=== PATIENT | female | born 1965 | race American Indian/Alaskan Native ===

== ENCOUNTER 2017-01-30 17:08 | Emergency (ER) | payer BC ==
[2017-01-30 17:09] VITALS: BMI 35.5
[2017-01-30 17:20] VITALS: BP 147/89; PULSE 109; RESP 16; TEMP 99.5; O2SAT 98
--- NOTE | 2017-01-30 17:50 | ED PDOC ---
Arrival/HPI - General Historian: Patient <MIKHAIL GARCIA - Last Filed: 01/30/17 18:09> <Hansel Bentley - Last Filed: 01/30/17 18:14> - General Chief Complaint: Back Pain Time Seen by Provider: 01/30/17 17:31 - History of Present Illness Narrative History of Present Illness (Text): 01/30/17 17:45 Patient is a 51 year old female with past medical history of hypertension and anxiety who presents to the emergency department for right sided neck, back, and arm pain for the past four days. She states that starting a week ago she began to feel stiffness and tightness in her mid back. She continued to deal with the stiffness until Sunday when the patient developed progressively worsening pain with numbness and tingling in her right arm. The patient credits the worsening pain due to sleeping wrong the night prior. She states the pain is worse with typing, writing, sitting and working on phone and relieved with light massage and extension of her right arm. She has taken Tylenol for the pain with minimal relief. She denies any shortness of breath, chest pain, fever , sweating, nausea or weakness. She denies any previous history of these symptoms in her past. (MIKHAIL GARCIA) Past Medical History - Provider Review Nursing Documentation Reviewed: Yes - Infectious Disease Hx of Infectious Diseases: None - Tetanus Immunization Tetanus Immunization: Unknown - Cardiac Hx Cardiac Disorders: Yes Hx Hypertension: Yes - Pulmonary Hx Respiratory Disorders: No - Neurological Hx Neurological Disorder: No - HEENT Hx HEENT Disorder: No - Renal Hx Renal Disorder: No - Endocrine/Metabolic Hx Endocrine Disorders: No - Hematological/Oncological Hx Blood Disorders: No - Integumentary Hx Dermatological Disorder: No - Musculoskeletal/Rheumatological Hx Musculoskeletal Disorders: No - Gastrointestinal Hx Gastrointestinal Disorders: No - Genitourinary/Gynecological Hx Genitourinary Disorders: No - Psychiatric Hx Psychophysiologic Disorder: Yes Hx Anxiety: Yes Hx Substance Use: No - Surgical History Hx Section: Yes (x 2) - Anesthesia Hx Anesthesia: Yes Hx Anesthesia Reactions: No Hx Malignant Hyperthermia: No - Suicidal Assessment Feels Threatened In Home Enviroment: No <MIKHAIL GARCIA - Last Filed: 01/30/17 18:09> - Provider Review Nursing Documentation Reviewed: Yes <Hansel Bentley - Last Filed: 01/30/17 18:14> Family/Social History - Physician Review Nursing Documentation Reviewed: Yes Family/Social History: No Known Family HX Smoking Status: Light Smoker < 10 Cigarettes Daily Hx Alcohol Use: Yes Hx Substance Use: No Hx Substance Use Treatment: No <MIKHAIL GARCIA - Last Filed: 01/30/17 18:09> - Physician Review Nursing Documentation Reviewed: Yes <ShereeHansel - Last Filed: 01/30/17 18:14> Allergies/Home Meds <MIKHAIL GARCIA - Last Filed: 01/30/17 18:09> <ShereeHanesl - Last Filed: 01/30/17 18:14> Allergies/Adverse Reactions: Allergies Penicillins Allergy (Verified 03/25/16 10:19) URTICARIA Home Medications: Home Meds Medication Instructions Recorded Confirmed Alprazolam [Xanax] 0.25 mg PO Q12 PRN 06/10/12 03/25/16 Review of Systems - Physician Review All systems were reviewed & negative as marked: Yes - Review of Systems Respiratory: absent: SOB, Cough Cardiovascular: absent: Chest Pain, Palpitations Musculoskeletal: Back Pain (right mid thoracic), Neck Pain (right sided) <MIKHAIL GARCIA - Last Filed: 01/30/17 18:09> - Physician Review All systems were reviewed & negative as marked: Yes - Review of Systems Neurological: Normal Endocrine: Normal Hemo/Lymphatic: Normal Psychiatric: Normal <Hansel Bentley - Last Filed: 01/30/17 18:14> Physical Exam Vital Signs Reviewed: Yes Temperature: Afebrile Blood Pressure: Normal Pulse: Tachycardic Respiratory Rate: Normal Appearance: Positive for: Well-Appearing Pain Distress: None Mental Status: Positive for: Alert and Oriented X 3 - Systems Exam Head: Present: Atraumatic, Normocephalic Pupils: Present: PERRL Extroacular Muscles: Present: EOMI Conjunctiva: Present: Normal Neck: Present: Normal Range of Motion. No: Meningeal Signs, MIDLINE TENDERNESS Respiratory/Chest: Present: Clear to Auscultation, Good Air Exchange. No: Respiratory Distress, Accessory Muscle Use Cardiovascular: Present: Regular Rate and Rhythm, Normal S1, S2. No: Murmurs Abdomen: Present: Normal Bowel Sounds. No: Tenderness, Distention, Peritoneal Signs Back: Present: Normal Inspection (trigger point right side paraspinal muscles T7 -T8), Paraspinal Tenderness (right sided ) Upper Extremity: Present: Normal ROM, NORMAL PULSES, Tenderness (right shoulder , arm, forearm), Neurovascularly Intact, Capillary Refill < 2s Lower Extremity: Present: Normal Inspection, NORMAL PULSES Neurological: Present: GCS=15, CN II-XII Intact, Speech Normal Skin: Present: Warm, Dry, Normal Color. No: Rashes Psychiatric: Present: Alert, Oriented x 3, Normal Insight, Normal Concentration <MIKHAIL GARCIA - Last Filed: 01/30/17 18:09> Vital Signs Reviewed: Yes <Hansel Bentley - Last Filed: 01/30/17 18:14> Vital Signs Temp Pulse Resp BP Pulse Ox 01/30/17 17:09 99.5 F 109 H 16 147/89 98 Medical Decision Making <MIKHAIL GARCIA - Last Filed: 01/30/17 18:09> <Hansel Bentley - Last Filed: 01/30/17 18:14> ED Course and Treatment: 01/30/17 17:59 Impression: Pt is a 51 year old female with past medical history of Hypertension and anxiety presents with right sided neck, shoulder, arm, forearm pain for the past four days. Differential Diagnosis included but are not limited to: - Cervical radiculopathy Plan: - Toradol IM injection - Flexeril prescription for at home - Reassess and disposition Progress Notes: (MIKHAIL GARCIA) 01/30/17 18:10 Seen and examined with the resident. Our history and physical exam reveals a woman who slept on her neck wrong last week. She developed right sided trapezius neck pain with radiation into her right upper extremity. No numbness tingling or paresthesias. No weakness. No direct blow. No chest pain palpitations or dyspnea. Her examination has some mild tenderness along the trapezius with spasm. She'll be treated and follow up with her PMD. Imaging as warranted if she does not improve. (Hansel Bentley) - Medication Orders Current Medication Orders: Discontinued Medications Ketorolac Tromethamine (Toradol) 30 mg IM STAT STA Stop: 01/30/17 17:59 - PA / PALLIATIVE CARE NURSE / Resident Statement MD/DO has reviewed & agrees with the documentation as recorded. / has examined the patient and agrees with the treatment plan. <MIKHAIL GARCIA - Last Filed: 01/30/17 18:09> - PA / PALLIATIVE CARE NURSE / Resident Statement FELECIA has reviewed & agrees with the documentation as recorded. MD/DO has examined the patient and agrees with the treatment plan. - Scribe Statement The provider has reviewed the documentation as recorded by the Scribe <Hansel Bentley - Last Filed: 01/30/17 18:14> - Scribe Statement 01/30/2017 Tania Claudia Provider Scribe Attestation: All medical record entries made by the Scribe were at my direction and personally dictated by me. I have reviewed the chart and agree that the record accurately reflects my personal performance of the history, physical exam, medical decision making, and the department course for this patient. I have also personally directed, reviewed, and agree with the discharge instructions and disposition. (Hansel Bentley) Disposition/Present on Arrival - Present on Arrival Any Indicators Present on Arrival: No History of DVT/PE: No History of Uncontrolled Diabetes: No Urinary Catheter: No History of Decub. Ulcer: No History Surgical Site Infection Following: None - Disposition Have Diagnosis and Disposition been Completed?: Yes Disposition Time: 18:10 <MIKHAIL GARCIA - Last Filed: 01/30/17 18:09> <Hansel Bentley - Last Filed: 01/30/17 18:14> - Disposition Diagnosis: Cervical radiculopathy Disposition: HOME/ ROUTINE Patient Problems: Current Active Problems Problem Status Onset Cervical radiculopathy Acute Condition: GOOD Additional Instructions: Mrs. Park, thank you for letting us take care of you today. Your provider was Dr. Garcia and Dr. Bentley. You were treated for cervical radiculopathy. The emergency medical care you received today was directed at your acute symptoms. If you were prescribed any medication, please fill it and take as directed. It may take several days for your symptoms to resolve. Return to the Emergency Department if your symptoms worsen, do not improve, or if you have any other problems. Please contact your doctor or call one of the physicians/clinics you have been referred to that are listed on the Patient Visit Information form that is included in your discharge packet. Bring any paperwork you were given at discharge with you along with any medications you are taking to your follow up visit. Our treatment cannot replace ongoing medical care by a primary care provider (PCP) outside of the emergency department. Thank you for allowing the [facility] team to be part of your care today. Follow up with your primary care physician. Prescriptions: Cyclobenzaprine [Flexeril] 5 mg PO TID #15 tab Naproxen [Naprosyn] 500 mg PO BID #14 tablet Referrals: José Miguel Bates MD [Primary Care Provider] - Follow up with primary
== END 2017-01-30 18:40 | disposition home or self-care (01) ==
LOC: ED 17:08
DX: M54.12 Radiculopathy, cervical region (principal); I10 Essential (primary) hypertension; Z72.0 Tobacco use
CPT/HCPCS: 96372; 99283; J1885

== ENCOUNTER 2018-12-15 13:58 | Emergency (ER) | payer BC ==
[2018-12-15 14:06] VITALS: BMI 30.2
[2018-12-15 14:11] VITALS: BP 140/91
[2018-12-15] MEDS ORDERED: Sodium Chloride 0.9% 1,000 ML IV SCH (14:45)
--- NOTE | 2018-12-15 14:50 | ED PDOC ---
Arrival/HPI - General Chief Complaint: Shortness Of Breath Time Seen by Provider: 12/15/18 14:05 Historian: Patient - History of Present Illness Narrative History of Present Illness (Text): 53 yr old female w/ hx of HTN, p/w sob w/ anxiety and headache. Patient notes x2d of headache, not worst of life or sudden in onset. No FND. No fall or trauma. She notes headache starts from posterior of head radiating to the front of head. She notes taking advil earlier with mild relief. No weakness or slurred speech. No neck stiffness of fever, chills or night sweats. No FND. She notes sob episodes whenever she feels anxious, and denies any pleuritic chest pain or sob w/ exertion or leg swelling. No abdominal pain or dark or bloody stool. No recent surgery or hx of ca. No hormonal treatment or hx of blood clots or hemoptysis. No other complaints Past Medical History - Provider Review Nursing Documentation Reviewed: Yes - Infectious Disease Hx of Infectious Diseases: None - Tetanus Immunization Tetanus Immunization: Unknown - Cardiac Hx Cardiac Disorders: Yes Hx Hypertension: Yes - Pulmonary Hx Respiratory Disorders: No - Neurological Hx Neurological Disorder: No - HEENT Hx HEENT Disorder: No - Renal Hx Renal Disorder: No - Endocrine/Metabolic Hx Endocrine Disorders: No - Hematological/Oncological Hx Blood Disorders: No - Integumentary Hx Dermatological Disorder: No - Musculoskeletal/Rheumatological Hx Musculoskeletal Disorders: No - Gastrointestinal Hx Gastrointestinal Disorders: No - Genitourinary/Gynecological Hx Genitourinary Disorders: No - Psychiatric Hx Psychophysiologic Disorder: Yes Hx Anxiety: Yes Hx Substance Use: No - Surgical History Hx Section: Yes (x 2) - Anesthesia Hx Anesthesia: Yes Hx Anesthesia Reactions: No Hx Malignant Hyperthermia: No - Suicidal Assessment Feels Threatened In Home Enviroment: No Family/Social History - Physician Review Nursing Documentation Reviewed: Yes Family/Social History: No Known Family HX Smoking Status: Light Smoker < 10 Cigarettes Daily Hx Alcohol Use: Yes Frequency of alcohol use: Socially Hx Substance Use: No Hx Substance Use Treatment: No Allergies/Home Meds Allergies/Adverse Reactions: Allergies Penicillins Allergy (Verified 12/15/18 14:05) URTICARIA Home Medications: Home Meds Medication Instructions Recorded Confirmed Alprazolam [Xanax] 0.25 mg PO Q12 PRN 06/10/12 03/25/16 Review of Systems - Review of Systems Constitutional: absent: Fatigue, Weight Change, Fevers, Night Sweats Eyes: absent: Vision Changes, Photophobia, Eye Pain ENT: absent: Hearing Changes, Tinnitus, TMJ Pain, Voice Changes, Sore Throat, Rhinorrhea, Epistaxis, Sinus Congestion Respiratory: SOB (only when feeling anxious). absent: Cough, Sputum, Wheezing, Other Cardiovascular: absent: Chest Pain, Palpitations, Edema, Calf Pain, GOFF, Orthopnea, Syncope Gastrointestinal: absent: Abdominal Pain, Stool Changes Genitourinary Female: absent: Dysuria, Frequency, Hematuria, Urine Output Changes Musculoskeletal: absent: Arthralgias, Back Pain, Neck Pain, Joint Swelling, Myalgias Skin: absent: Rash, Pruritis, Skin Lesions, Laceration, Abscess Neurological: Headache. absent: Dizziness, Focal Weakness, Gait Changes, Speech Changes, Facial Droop, Disequilibrium, Seizure Endocrine: absent: Diaphoresis, Polyuria Hemo/Lymphatic: absent: Adenopathy, Easy Bleeding, Easy Bruising Psychiatric: Anxiety (intermittently, none now). absent: Depression, Suicidal Ideation Physical Exam Vital Signs Temp Pulse Resp BP Pulse Ox 12/15/18 14:07 20 98 12/15/18 13:58 98.6 F 112 H 18 140/91 H 97 Temperature: Afebrile Blood Pressure: Normal Pulse: Tachycardic Respiratory Rate: Normal Appearance: Positive for: Well-Appearing, Non-Toxic, Comfortable Pain Distress: None Mental Status: Positive for: Alert and Oriented X 3, other (lying comfortably in bed, relaxing with her phone) - Systems Exam Head: Present: Atraumatic, Normocephalic. No: Tenderness, Contusion, Swelling, Ecchymosis, Abrasion Pupils: Present: PERRL. No: Sluggish Extroacular Muscles: Present: EOMI Conjunctiva: Present: Normal Ears: Present: Normal, NORMAL TM, Normal Canal. No: Erythema Mouth: Present: Moist Mucous Membranes Pharnyx: Present: Normal. No: ERYTHEMA, EXUDATE Nose (External): Present: Atraumatic Nose (Internal): Present: Normal Inspection, No Active Bleeding. No: Septal Hematoma Neck: Present: Normal Range of Motion. No: Meningeal Signs, MIDLINE TENDERNESS, JVD Respiratory/Chest: Present: Clear to Auscultation, Good Air Exchange. No: Respiratory Distress, Accessory Muscle Use Cardiovascular: Present: Regular Rate and Rhythm, Normal S1, S2. No: Murmurs Abdomen: Present: Normal Bowel Sounds. No: Tenderness, Distention, Peritoneal Signs, Guarding, McBurney's Point Tender, Rovsing's Sign Present Back: Present: Normal Inspection. No: CVA Tenderness, Midline Tenderness Upper Extremity: Present: Normal Inspection. No: Cyanosis, Edema Lower Extremity: Present: Normal Inspection, Normal ROM. No: Edema, CALF TENDERNESS, NORMAL PULSES, Tenderness, Swelling Neurological: Present: GCS=15, CN II-XII Intact, Speech Normal, Motor Func Grossly Intact, Normal Cerebellar Funct, Gait Normal Skin: Present: Warm, Dry, Normal Color. No: Rashes Psychiatric: Present: Alert, Oriented x 3, Normal Insight, Normal Concentration, Normal Affect, Normal Mood. No: Anxious, Agitated, Depressed Mood, Suicidal Ideation, Homicidal Ideation, Delusional, Hallucinations, Intoxicated, Lethargic Medical Decision Making ED Course and Treatment: 53 yr old female w/ hx of HTN, p/w sob w/ anxiety and headache. Lungs CTA b/l. No fall or trauma. STROUD not worst of life or sudden in onset, unlikely SAH. No meningeal signs. No FND, Normal Neuro exam. No SOB on exam, only inte rmittent anxiety with shortness of breath. Normal affect, pt in NAD- speaking full sentences. 12/15/2018 15:04 Chest X-ray IMPRESSION: No active disease. Dictator: José Luis Turner MD EK, sinus tachy, no stemi 12/15/18 15:26 Pt seeking to signout AMA. I endorsed possible or disability: blood clot / PE or Brain bleed / ICH or mass causing potentially or permanent disability. She endorsed understanding with a normal affect and without any SI or HI or depression / anxiety. Given good capacity to understand / disability pt signed out AMA and I endorsed to pt to return at any time. Leaving Against Medical Advice (AMA): The patient is choosing to leave against medical advice. I have personally explained to the patient that choosing to do so may result in permanent bodily harm, disability, or . I have discussed at great length that without further evaluation and monitoring there may be unforeseen circumstances and/or deterioration causing permanent bodily harm or as a result of their choice. The patient is alert, oriented, and shows the mental capacity to make clear decisions regarding the patients health care at this time. The patient c ontinues to wish to leave against medical advice. In light of the patients decision to leave against medical advice, follow-up has been arranged and the patient is aware of the importance to following up as instructed. The patient has been advised that they should return to the emergency room immediately if they change their mind at any time, or if their condition begins to change or worsen in any way. - RAD Interpretation Radiology Orders: 12/15/18 14:44 HEAD W/O CONTRAST [CT] Stat CHEST PORTABLE [RAD] Stat - Medication Orders Current Medication Orders: Acetaminophen (Tylenol 325mg Tab) 650 mg PO STAT STA Stop: 12/15/18 14:46 Sodium Chloride (Sodium Chloride 0.9%) 1,000 mls @ 100 mls/hr IV .Q10H JUANIS Metoclopramide HCl (Reglan) 10 mg IVP STAT STA Stop: 12/15/18 14:46 Disposition/Present on Arrival - Present on Arrival Any Indicators Present on Arrival: No History of DVT/PE: No History of Uncontrolled Diabetes: No Urinary Catheter: No History of Decub. Ulcer: No History Surgical Site Infection Following: None - Disposition Have Diagnosis and Disposition been Completed?: Yes Diagnosis: Shortness of breath, Headache Disposition: AGAINST MEDICAL ADVICE Disposition Time: 15:31 Condition: STABLE Referrals: José Miguel Bates MD [Primary Care Provider] - Follow up with primary Forms: [employer] ([place])
--- NOTE | 2018-12-15 15:08 | RAD ---
Date of service: 12/15/2018 HISTORY: sob COMPARISON: Chest radiograph dated 10/19/2015. TECHNIQUE: 1 view obtained. FINDINGS: LUNGS: No active pulmonary disease. PLEURA: No significant pleural effusion identified, no pneumothorax apparent. CARDIOVASCULAR: PICC atherosclerotic calcifications. Cardiomediastinal silhouette stably prominent. OSSEOUS STRUCTURES: Unchanged. VISUALIZED UPPER ABDOMEN: Normal. OTHER FINDINGS: None. IMPRESSION: No active disease.
[2018-12-15 15:32] VITALS: PULSE 100; RESP 19; TEMP 98.3; O2SAT 99
[2018-12-15 16:00] LABS: ALB/GLOB RATIO 1.4 (1.1-1.8); ALBUMIN 4.5 g/dL (3.0-4.8); ALT/SGPT 25 U/L (7-56); AST/SGOT 26 U/L (14-36); BLOOD UREA NITROGEN 17 mg/dL (7-21); CALCIUM 9.5 mg/dL (8.4-10.5); GFR NON-AFRICAN AMERICAN 58
[2018-12-15 16:01] LABS: ACETAMINOPHEN < 10.0 ug/ml (10.0-20.0); SALICYLATE < 1 mg/dL (2.0-20.0)
[2018-12-15 16:04] LABS: PH,URINE 5.5 (4.7-8.0); URINE BILIRUBIN NEGATIVE (NEGATIVE); URINE BLOOD NEGATIVE (NEGATIVE); URINE GLUCOSE (UA) 250 mg/dL (NEGATIVE); URINE LEUKOCYTE ESTERASE NEGATIVE Leu/uL (NEGATIVE); URINE PROTEIN NEGATIVE mg/dL (<30 mg/dL); URINE UROBILINOGEN 0.2 E.U./dL (<1 E.U./dL)
[2018-12-15 16:04] LABS: BASO # 0.02 K/mm3 (0.0-2.0); BASO % 0.3 % (0.0-3.0); EOS % 0.5 % (1.5-5.0); HEMOGLOBIN 12.8 g/dL (12.0-16.0); LYMPH # 2.7 (1.2-3.4); LYMPH % 35.2 % (22.0-35.0); MEAN CELL VOLUME 94.1 fl (80.0-105.0); MEAN CORPUSCULAR HEMOGLOBIN 31.5 pg (25.0-35.0); MEAN CORPUSCULAR HGB CONC 33.5 g/dl (31.0-37.0); MEAN PLATELET VOLUME 8.5 fl (7.0-11.0); MONO # 0.4 (0.1-0.6); MONO % 4.6 % (1.0-6.0); RBC 4.06 10^6/uL (3.5-6.1); RED CELL DISTRIBUTION WIDTH 13.9 % (11.5-14.5); WHITE BLOOD COUNT 7.6 10^3/uL (4.5-11.0)
[2018-12-15 16:07] LABS: BARBITURATES, UR NEGATIVE (NEGATIVE); BENZODIAZEPINES, UR NEGATIVE (NEGATIVE); OPIATES, UR NEGATIVE (NEGATIVE); PHENCYCLIDINE, UR NEGATIVE (NEGATIVE)
[2018-12-15 16:08] LABS: URINE APPEARANCE CLEAR (CLEAR); URINE COLOR YELLOW (YELLOW)
[2018-12-15 16:29] LABS: URINE BACTERIA FEW /hpf
--- NOTE | 2018-12-15 19:16 | CARD ---
APPROVED REPORT Date of service: 12/15/2018 EKG Measurement Heart [id number] <Conclusion> Sinus tachycardia Possible Left atrial enlargement Septal infarct, age undetermined Prolonged QTc CCR Abnormal ECG
== END 2018-12-15 15:31 | disposition left against medical advice (07) ==
LOC: ED 13:58
DX: R51 Headache (principal); R06.02 Shortness of breath
CPT/HCPCS: 71045; 80053; 81001; 83735; 85025; 87086; 87181; 93005; 96374; 99283; G0480; J2765; J7030